=== PATIENT | female | born 1970 | race Asian ===

== ENCOUNTER 2020-07-24 13:28 | Emergency (ER) | payer OTHER ==
[~2020-07-24] VITALS: Ht 129.5 cm; Wt 59.9 kg
[2020-07-24 13:41] VITALS: Ht 129.5 cm; Wt 59.9 kg
[2020-07-24 15:00] LABS: microscopic required? NO
[2020-07-24 15:02] VITALS: BP 169/97
[2020-07-24 15:12] LABS: urine erythrocyte NEGATIVE (NEGATIVE)
== END 2020-07-24 15:02 | disposition home or self-care (01) ==
LOC: ED 13:28
PROVIDERS: Emergency Medicine
DX: N39.0 Urinary tract infection, site not specified (principal)